=== PATIENT | female | born 1985 | race Caucasian/White ===

== ENCOUNTER 2017-08-23 18:44 | Outpatient (CLI) | payer OTHER ==
[2017-08-23 19:13] LABS: BASOPHILS # (AUTO) 0.1 10^3/uL (0.0-0.1); BASOPHILS % (AUTO) 0.7 %; EOSINOPHILS # (AUTO) 0.6 10^3/uL (0.0-0.7); EOSINOPHILS % (AUTO) 5.5 %; HGB - HEMOGLOBIN 11.8 g/dL (12.0-16.0); LYMPHOCYTES # (AUTO) 2.1 10^3/uL (1.5-3.5); LYMPHOCYTES % (AUTO) 20.3 %; MEAN CORPUSCULAR HEMOGLOBIN 32.6 pg (27.0-31.0); MEAN CORPUSCULAR HGB CONC 33.1 g/dL (32.0-36.0); MEAN CORPUSCULAR VOLUME 98.5 fL (81.0-99.0); MEAN PLATELET VOLUME 8.5 fL (7.9-10.8); MONOCYTES # (AUTO) 0.6 10^3/uL (0.0-1.0); MONOCYTES % (AUTO) 6.3 %; NEUTROPHILS # (AUTO) 6.9 10^3/uL (1.5-6.6); NEUTROPHILS % (AUTO) 67.2 %; PLT - PLATELET COUNT 300 10^3/uL (130-450); RED BLOOD COUNT 3.62 10^6/uL (4.20-5.40); RED CELL DISTRIBUTION WIDTH 14.2 % (12.0-15.0); WHITE BLOOD COUNT 10.3 x10^3/uL (4.8-10.8)
[2017-08-23 19:23] LABS: HCG UR QUAL NEGATIVE
[2017-08-23 19:51] LABS: ALBUMIN 3.9 g/dL (3.2-5.5); ALBUMIN/GLOBULIN RATIO 1.1 (1.0-2.2); BILIRUBIN,TOTAL 0.4 mg/dL (0.2-1.0); CALCIUM 9.7 mg/dL (8.5-10.3); CREATININE 0.9 mg/dL (0.4-1.0); TOTAL PROTEIN 7.4 g/dL (6.7-8.2)
== END 2017-08-23 18:45 | disposition home or self-care (01) ==
LOC: LAB 18:44
PROVIDERS: ATTEND Specialist
DX: R10.9 Unspecified abdominal pain (principal); E28.2 Polycystic ovarian syndrome; K63.5 Polyp of colon; B00.9 Herpesviral infection, unspecified
CPT/HCPCS: 36415; 80053; 81025; 82150; 83690; 85025

== ENCOUNTER 2017-08-25 17:03 | Emergency (ER) | payer OTHER ==
[2017-08-25] MEDS ORDERED: ACETAMINOPHEN 325 MG TABLET PO STA (17:34)
--- NOTE | 2017-08-25 17:36 | ED Physician Documentation ---
History of Present Illness - Stated complaint Stated Complaint: POSS HEAT EX/HEADACHE - Chief complaint Chief Complaint: General - History obtained from History obtained from: Patient - History of Present Illness Timing: Today (32-year-old woman with history of PCO S was driving around in her car today and started to feel sick with bilateral head pressure and neck tension. She felt dizzy and weak. Of note she has been feeling headachy for the last several months, worse over the last couple of weeks. The headaches have been intermittent, without a particular pattern to them. They are sometimes sudden and sometimes gradual in onset. She also notes that she is on her menses and it is a little heavier than normal. She saw a walk-in clinic physician 2 days ago and had labs done which were notable for hemoglobin of 10-1 /2 or so but otherwise negative. She had a negative test then.) Review of Systems Constitutional: reports: Fatigue. denies: Fever, Chills Nose: denies: Rhinorrhea / runny nose, Congestion Throat: denies: Sore throat GI: reports: Abdominal Pain (Left-sided). denies: Nausea PD PAST MEDICAL HISTORY - Present Medications Home Medications: Ambulatory Orders Medication Instructions Recorded Confirmed Cyclobenzaprine [Flexeril] 10 mg PO TID PRN #20 tablet 08/25/17 - Allergies Allergies/Adverse Reactions: Allergies Allergy/AdvReac Type Severity Reaction Status Date / Time Sulfa (Sulfonamide Allergy Unknown Verified 08/25/17 17:11 Antibiotics) PD ED PE NORMAL - Vitals Vital signs reviewed: Yes - General General: Alert and oriented X 3, No acute distress - HEENT HEENT: PERRL, EOMI - Neck Neck: Supple, no meningeal sign, No bony TTP - Cardiac Cardiac: RRR, No murmur - Respiratory Respiratory: No respiratory distress, Clear bilaterally - Abdomen Abdomen: Normal bowel sounds, Soft, Non tender - Back Back: No CVA TTP, No spinal TTP - Extremities Extremities: No edema, No calf tenderness / cord - Neuro Neuro: Alert and oriented X 3, Normal speech Results - Vitals Vitals: Vital Signs - 24 hr 08/25/17 08/25/17 17:09 18:34 Temperature 36.9 C 36.8 C Heart Rate 66 65 Respiratory 16 16 Rate Blood Pressure 120/86 H 118/78 O2 Saturation 98 98 Oxygen O2 Source Room air - Labs Labs: Laboratory Tests 08/25/17 08/25/17 08/25/17 17:41 17:41 17:41 WBC 9.5 RBC 3.56 L Hgb 11.5 L Hct 34.2 L MCV 96.2 MCH 32.3 H MCHC 33.6 RDW 13.6 Plt Count 279 MPV 8.6 Neut # (Auto) 6.3 Lymph # (Auto) 2.1 Alcorn # (Auto) 0.6 Eos # (Auto) 0.5 Baso # (Auto) 0.1 Absolute Nucleated RBC 0.01 Nucleated RBC % 0.1 PT 12.4 INR 1.1 Sodium 133 L Potassium 3.3 L Chloride 99 L Carbon Dioxide 25 Anion Gap 9.0 BUN 18 Creatinine 0.8 Estimated GFR (MDRD) 83 L Glucose 96 Calcium 9.0 - Rads (name of study) CT Head Radiology: EMP read contemporaneously (normal) PD MEDICAL DECISION MAKING - ED course ED course: She is worried about a heat related injury, however the low normal vital signs and lack of response to oral fluids argue against this. She was a little anemic the other day and she has ongoing, we will recheck this and do a CT of her head. The pattern of months worth of headaches argue against an infectious etiology but mass lesion is on the differential. Her sodium did go down her H&H went up since the other day, this could be from mild dehydration or from excess water use which more fits the history. She was advised to cut back on free water a little bit and follow-up with her primary care physician. - Sepsis Event Vital Signs: Vital Signs - 24 hr 08/25/17 08/25/17 17:09 18:34 Temperature 36.9 C 36.8 C Heart Rate 66 65 Respiratory 16 16 Rate Blood Pressure 120/86 H 118/78 O2 Saturation 98 98 Oxygen O2 Source Room air Departure - Departure Disposition: 01 Home, Self Care Clinical Impression: Hyponatremia Headache Qualifiers: Headache type: tension-type Headache chronicity pattern: acute headache Intractability: not intractable Qualified Code(s): G44.209 - Tension-type headache, unspecified, not intractable Condition: Good Record reviewed to determine appropriate education?: Yes Instructions: ED Cephalgia Unspecified Prescriptions: Cyclobenzaprine [Flexeril] 10 mg PO TID PRN #20 tablet PRN Reason: Pain Comments: Call your doctor to arrange a follow-up appointment, make the next available appointment. In the interim, return anytime if worse or if new symptoms develop.
[2017-08-25 17:48] LABS: BASOPHILS # (AUTO) 0.1 10^3/uL (0.0-0.1); BASOPHILS % (AUTO) 1.1 %; EOSINOPHILS # (AUTO) 0.5 10^3/uL (0.0-0.7); EOSINOPHILS % (AUTO) 5.2 %; HGB - HEMOGLOBIN 11.5 g/dL (12.0-16.0); LYMPHOCYTES # (AUTO) 2.1 10^3/uL (1.5-3.5); LYMPHOCYTES % (AUTO) 21.6 %; MEAN CORPUSCULAR HEMOGLOBIN 32.3 pg (27.0-31.0); MEAN CORPUSCULAR HGB CONC 33.6 g/dL (32.0-36.0); MEAN CORPUSCULAR VOLUME 96.2 fL (81.0-99.0); MEAN PLATELET VOLUME 8.6 fL (7.9-10.8); MONOCYTES # (AUTO) 0.6 10^3/uL (0.0-1.0); MONOCYTES % (AUTO) 5.9 %; NEUTROPHILS # (AUTO) 6.3 10^3/uL (1.5-6.6); NEUTROPHILS % (AUTO) 66.2 %; PLT - PLATELET COUNT 279 10^3/uL (130-450); RED BLOOD COUNT 3.56 10^6/uL (4.20-5.40); RED CELL DISTRIBUTION WIDTH 13.6 % (12.0-15.0); WHITE BLOOD COUNT 9.5 x10^3/uL (4.8-10.8)
[2017-08-25 17:51] LABS: INR 1.1 (0.8-1.2); PT - PROTHROMBIN TIME 12.4 secs (9.9-12.6)
[2017-08-25 17:56] LABS: CREATININE 0.8 mg/dL (0.4-1.0)
--- NOTE | 2017-08-25 18:34 | CT Report ---
Procedure Date: 08/25/2017 Accession Number: [id number] / [id number] Procedure: CT - Head W/O CPT Code: FULL RESULT: EXAM: CT HEAD EXAM DATE: 08/25/2017 06:23 PM. CLINICAL HISTORY: Headache. COMPARISON: None. TECHNIQUE: Multiaxial CT images were obtained from the foramen magnum to the vertex. Reformats: Coronal. IV contrast: None. In accordance with CT protocol optimization, one or more of the following dose reduction techniques were utilized for this exam: automated exposure control, adjustment of mA and/or KV based on patient size, or use of iterative reconstructive technique. FINDINGS: Parenchyma: No intraparenchymal hemorrhage. No evidence of mass, midline shift, or CT findings of infarction. Odonnell-white differentiation is distinct. Extraaxial Spaces: Normal for age. No subdural or epidural collections identified. Ventricles: Normal in size and position. Sinuses and Orbits: Imaged paranasal sinuses, orbits, and mastoids show no significant abnormality. Bones: No evidence of fracture or calvarial defect. Other: None. IMPRESSION: Normal head CT. [facility]
[2017-08-25 18:35] VITALS: BP 118/78
== END 2017-08-25 18:56 | disposition home or self-care (01) ==
LOC: ED 17:03
DX: E87.1 Hypo-osmolality and hyponatremia (principal); R51 Headache
CPT/HCPCS: 36415; 70450; 80048; 85025; 85610; 99283; A9270